=== PATIENT | female | born 1955 | race African-American/Black ===

== ENCOUNTER 2017-01-31 23:39 | Emergency (ER) | payer MEDICAID ==
[~2017-01-31] VITALS: Ht 157.5 cm; Wt 88.2 kg
[2017-02-01] MEDS ORDERED: KETOROLAC 30 MG/1 ML IM ONE (00:30)
[2017-02-01] MEDS ORDERED: KETOROLAC 30 MG/1 ML ONE (00:37)
[2017-02-01 01:38] VITALS: BP 117/71
== END 2017-02-01 01:40 | disposition home or self-care (01) ==
LOC: ED 23:59
DX: S39.012A Strain of muscle, fascia and tendon of lower back, initial encounter (principal); M51.36 Other intervertebral disc degeneration, lumbar region; M54.41 Lumbago with sciatica, right side; Z88.5 Allergy status to narcotic agent; X58.XXXA Exposure to other specified factors, initial encounter; Y93.89 Activity, other specified; Y92.89 Other specified places as the place of occurrence of the external cause; Y99.8 Other external cause status
CPT/HCPCS: 72110; 96372; 99284; J1885